=== PATIENT | female | born 1985 | race Hispanic/Latino ===

== ENCOUNTER 2020-11-21 10:35 | Day surgery (SDC) | payer MEDICAID, OTHER ==
--- NOTE | 2020-11-17 10:42 | History and Physical Report ---
History of Present Illness Date of examination: 11/15/20 History of present illness: Patient has been reassessed/reevaluated. H&P has been reviewed. No interval changes. This is a 35 years old female who presents with pelvic pain. She complains of nausea, but denies dysuria, dysmenorrhea, dyspareunia, vaginal itching, vaginal discharge, vaginal odor, painful bowel movements, constipation, diarrhea, vomiting, back pain and fever. Pain is located RLQ, LLQ, RUQ and suprapubic. She describes the pain as dull and cramping. Duration of pain is 5 min - 1 hour. Episodes are intermittent and unpredictable. Patient notes pain is worse with activity. Patient's work up has included abdominal/pelvic ulrasounds and CT scans that have gallstones and an 11cm ovarian cyst. Patient also has a displaced Mirena IUD that she desires removal. Patient's symptoms when present disrupts her normal daily activities Patient desires definitive treatment Vital Signs: Patient Profile: 35 Years Old Female Height: 62.25 inches (158.12 cm) Weight: 264 pounds BMI: 47.89 Temp: 97.2 degrees F BP sittin / 80 (left arm) Menstrual History: On BCP's at conception: no Current Method of Contraception: IUD Date of Last Pap Smear: 04/14/2020 Past History : 2 Term Births: 2 Premature Births: 0 Living Children: 1 Para: 2 Mult. Births: 0 Prev : 2 Aborta: 0 Elect. Ab: 0 Spont. 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 of genital herpes: no Partner hx. of genital herpes: no Hx of STD: none Current Allergies (reviewed today): PENICILLIN (Critical) * KEFLEX (Critical) * BACTRIM (Critical) Past Medical History: Blood Transfusions 2007 " Antibody E" Ovarian cysts Gallstones Past Surgical History: Right axillary surgery 2006 [facility] Family History Summary: No Family History of Breast Cancer No Family History of Colon Cancer No Family History of Ovarvian Cancer No Family History of DVT/PE on OCP Social History: Patient is Risk Factors: Smoked Tobacco Use: Former smoker Smokeless Tobacco Use: Never Passive smoke exposure: no Drug use: no HIV high-risk behavior: no Caffeine use: 1 drinks per day Alcohol use: yes Type: occ Exercise: yes Times per week: 7 Seatbelt use: 100 % PAP Smear History: Date of Last PAP Smear: 04/14/2020 Review of Systems General Complains of fatigue. Denies fever, chills, sweats, anorexia, weakness, malaise, weight loss and sleep disorder. Complains of pelvic pain. Denies vaginal discharge, incontinence, dysuria, hematuria, urinary frequency, amenorrhea, menorrhagia, abnormal vaginal bleeding, genital sores, decreased libido, painful periods, painful sex, urinary urgency, hot flashes, vaginal dryness, vaginal itching and vaginal odor. CV Denies chest pains, palpitations, syncope, dyspnea on exertion, orthopnea, PND and peripheral edema. Resp Denies cough, dyspnea at rest, excessive sputum, hemoptysis, wheezing and pleurisy. GI Complains of nausea, abdominal pain and gas/bloating. Denies vomiting, diarrhea, constipation, change in bowel habits, melena, hematochezia, jaundice, indigestion/heartburn, dysphagia and odynophagia. Breast Denies left breast lump, right breast lump, nipple discharge, bloody discharge from nipple, breast pain, abnormal mammogram and breast enlargement. Psych Complains of anxiety. Denies depression, irritability and mood swings. Past History Past Medical History: other (SEE HPI FOR DETAILS) Past Surgical History: Other (SEE HPI FOR DETAILS) Social history: full code, other (SEE HPI FOR DETAILS) Family history: other (SEE HPI FOR DETAILS) Medications and Allergies Allergies Allergy/AdvReac Type Severity Reaction Status Date / Time Penicillins Allergy Hives Verified 11/15/20 16:30 sulfamethoxazole Allergy Tongue Verified 11/15/20 16:30 [From Bactrim] becomes sore trimethoprim [From Bactrim] Allergy Tongue Verified 11/15/20 16:30 becomes sore cephalexin [From Keflex] AdvReac Thrush, Verified 11/15/20 16:30 infection Home Medications Medication Instructions Recorded Confirmed Last Taken Type No Known Home Medications [No 11/15/20 11/21/20 Unknown History Reported Home Medications] Active Meds: Mirena Review of Systems Constitutional: other (SEE HPI FOR DETAILS) Exam - Physical Exam Narrative exam: HEENT: normocephalic, no lesions or deformities Skin no ulcers, xanthomas Chest: respiratory effort normal, clear to auscultation CV: regular, normal S1-S2, no murmur, no rub, no gallop Abdomen: Tender RUQ & RLQ obese normal bowel sounds, soft, no HSM Well healed pfannenstiel scar Neuro: no gross anomalities Extremities: normal alignment, no joint enlargement, crepitus, masses or tenderness; normal tone and strength 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 No evidence of cystocele or rectocele. Cervix: normal appearance, no lesions, no discharge IUD string not seen Uterus: unable to palpate due to patient's guarding Adnexae: unable to palpate due to patient's guarding Rectovaginal: exam defered Results - Labs CBC & Chem 7: 11/18/20 09:45 Assessment and Plan - Patient Problems (1) Ovarian cyst Current Visit: No Status: Acute Qualifiers: Laterality: unspecified laterality Qualified Code(s): N83.209 - Unspecified ovarian cyst, unspecified side Plan to address problem: Discussed CT and ultrasound findings. Diagnosis explained to patient. Patient's symptoms when present disrupts her normal daily activities Patient desires definitive treatment. Medical and surgical treatment options discussed Patient desires laparoscopy. Discuss the risks of the surgery including infection, bleeding possibly heavy enough to require a blood transfusion, possible damage to adjacent organs. discuss of possibility of laparotomy needed.Discussed plan is for ovarian cystectomy but oophorectomy may possibly be required. Questions answered patient agreed to proceed (2) Pelvic pain Current Visit: No Status: Acute Plan to address problem: Probably secondary to # 1 (3) Displacement of intrauterine contraceptive device Current Visit: No Status: Acute Qualifiers: Encounter type: subsequent encounter Qualified Code(s): T83.32XD - Displacement of intrauterine contraceptive device, subsequent encounter Plan to address problem: Patient desires removal. IUD string not seen Indications for and description of the hysteroscopy given. .Discussed risk of surgery including infection, bleeding and risk of perforating her uterus. Questions answered. Patient understands and desires to proceed (4) Cholelithiasis Current Visit: No Status: Chronic Plan to address problem: Diagnosis explained to patient and laparoscopy will not address this condition. Questions answered. (5) Abdominal pain Current Visit: No Status: Acute Qualifiers: Abdominal location: lower abdomen, unspecified Qualified Code(s): R10.30 - Lower abdominal pain, unspecified Plan to address problem: Probably secondary to # 4 (6) Nausea Current Visit: No Status: Acute Plan to address problem: Probably secondary to # 4 (7) BMI 50.0-59.9, adult Current Visit: No Status: Chronic Plan to address problem: Discussed that the presents of this condition may increases the difficulty of performing the planned procedure
[2020-11-18 09:57] LABS: Hematocrit 37.9 % (30.3-42.9); Hemoglobin 13.3 gm/dl (10.1-14.3); Mean Corpuscular HGB Conc 35 % (30-34); Mean Corpuscular Volume 82 fl (79-97); Platelet Count 303 K/mm3 (140-440); Red Blood Count 4.63 M/mm3 (3.65-5.03); Red Cell Distribution Width 13.6 % (13.2-15.2)
[~2020-11-21 10:35] MED LIST: ACETAMINOPHEN 500 MG TAB PO SCH; GABAPENTIN 300 MG CAP PO NR; LACTATED RINGERS 1,000 ML IV SCH; MIDAZOLAM 2 MG/2 ML INJ IV NR; SCOPOLAMINE TRANSDERMAL PATCH 72 HR TD NR
[2020-11-21] MEDS ORDERED: BACTERIOSTATIC SODIUM CHLORIDE 0.9% 30 ML VIAL INFILTRATI ONE (10:53)
[2020-11-21] MEDS ORDERED: HYDROmorphone 1 MG/1 ML INJ IV PRN (11:44)
[2020-11-21] MEDS ORDERED: ONDANSETRON 4 MG/2 ML INJ IV PRN (11:44)
--- NOTE | 2020-11-21 11:44 | Anesthesia Consultation ---
Anesthesia Consult and Med Hx Date of service: 11/21/20 - Airway Anesthetic Teeth Evaluation: Good ROM Head & Neck: Adequate Mental/Hyoid Distance: Adequate Mallampati Class: Class I Intubation Access Assessment: Good - Pre-Operative Health Status ASA Pre-Surgery Classification: ASA3 Proposed Anesthetic Plan: General - Pulmonary Hx Smoking: Yes (quit smoking 3 yrs ago; currently vapes) Hx Asthma: Yes (no inhaler use in >10yrs) Hx Respiratory Symptoms: No - Cardiovascular System Hx Hypertension: No - Central Nervous System CVA: No - Endocrine Hx Renal Disease: No Hx Liver Disease: No Hx Insulin Dependent Diabetes: No Hx Non-Insulin Dependent Diabetes: No Hx Thyroid Disease: No - Hematic Hx Anemia: No Hx Sickle Cell Disease: No - Other Systems Hx Alcohol Use: Yes (Occas) Hx Obesity: Yes (BMI 49) - Additional Comments Anesthesia Medical History Comments: No hx anesthetic complications.
--- NOTE | 2020-11-21 11:44 | Anesthesia Day of Surgery ---
Anesthesia Day of Surgery - Day of Surgery Patient Examined: Yes Patient H&P Reviewed: Yes Patient is NPO: Yes
[2020-11-21] MEDS ORDERED: LIDOCAINE MPF (2%) 20 MG/1 ML VIAL 5 ML ONE (13:14)
[2020-11-21] MEDS ORDERED: dexAMETHasone 20 MG/5 ML VIAL ONE (13:14)
[2020-11-21] MEDS ORDERED: GLYCOPYRROLATE 0.4 MG/2 ML INJ ONE ×2 (13:14)
[2020-11-21] MEDS ORDERED: ONDANSETRON 4 MG/2 ML INJ ONE ×2 (13:14)
[2020-11-21] MEDS ORDERED: PHENYLEPHRINE/NS 1,000 MCG/10 ML SYRINGE (OR USE) IV ONE (13:14)
[2020-11-21] MEDS ORDERED: NEOSTIGMINE 10MG/10 ML INJ MDV ONE (13:14)
[2020-11-21] MEDS ORDERED: fentaNYL 100 MCG/2 ML INJ ONE (13:15)
[2020-11-21] MEDS ORDERED: propofoL 200 MG/20 ML VIAL IV ONE (13:15)
[2020-11-21] MEDS ORDERED: BUPIVACAINE/PF (0.5%) 5 MG/1 ML 10 ML VIAL INFILTRATI ONE ×2 (13:20→14:03)
[2020-11-21] MEDS ORDERED: SODIUM CHLORIDE 0.9% IRRIG SOLN 2000 ML IR ONE (14:03)
[2020-11-21] MEDS ORDERED: HYDROmorphone 1 MG/1 ML INJ ONE ×2 (14:28→15:38)
--- NOTE | 2020-11-21 16:00 | Operative Report ---
Operative Report Operative Report: Date of procedure: November 21, 2020 Pre-operative diagnosis: Patient with pelvic pain large ovarian cyst and di splaced IUD Post-operative diagnosis: Same Procedure name(s): Operative laparoscopy with drainage of left ovarian cyst and biopsy of left ovarian cyst wall and operative removal of Mirena IUD Surgeon: Isiah Mendez MD Business Process Manager: AMOS Anesthesia: General EBL: Minimal Complications: None Findings: Patient with Mirena IUD with some cord string. Patient with adhesions of uterus anterior abdominal wall thick omentum adhesions in the midline with a 10 to 12 cm left ovarian cyst normal-appearing ovaries and normal-appearing fallopian tubes bilaterally Specimen(s): Left ovarian cyst wall and Mirena IUD Procedure: Patient was brought to operating room. Where general anesthesia was induced on difficulty. She was placed in the dorsal lithotomy position. Prepped and draped in usual sterile manner. Urinary bladder was emptied with a red rubber catheter. Speculum was placed in the vagina. Tenaculum was placed at 12:00. The cervix was dilated progressively to operative hysteroscope could be placed without any difficulty. The hysteroscope was placed through the cervical os without any complications with the findings noted above. The IUD and the string was located. The string was grasped with a hysteroscopic graspers and pulled through the cervical os intact. Speculum was replaced into her vagina and HUMI uterine manipulator was placed for uterine manipulation without difficulty. Attention was then switched to the patient's abdomen. An infra-umbilical incision was made with a scalpel. This incision was spread with a hemostat. A 5 mm trocar was placed in this incision while lifting high the abdominal wall. Intra-abdominal presence was verified directly with the laparoscope. The patient was then insufflated to approximately 3 L of CO2 gas. The 5 mm trocar was replaced with a 10 mm trocar due to leaking around the trocar under direct visualization with no evidence of internal organ damage. The patient's findings as noted above. An accessory punctures were made in the right and left lower quadrant and 5 mm trochars were placed under direct visualization with no evidence of internal organ damage. The ovarian cyst was then punctured with the needle and drained of clear fluid. The incision was then increased in the cyst and the cyst was drained with this Nechat suction device. After the cyst was drained portion of the cyst wall was then excised with the laparoscopic scissors and removed through the separate puncture. The pelvis was then copiously irrigated and found to be hemostatic. At this time all instruments were removed. The patient was de-insufflated. The skin incisions were closed the 10 mm site was closed in layers first with a 2-0 Vicryl and all incisions were closed subcuticularly with 4-0 Vicryl. Marcaine was injected into the surgical incisions, for postoperative pain relief. The patient tolerated procedure well. She was awakened in the operating room and accompanied to the recovery room i in good condition
[2020-11-21] MEDS ORDERED: oxyCODONE /ACETAMINOPHEN 5-325MG TAB ONE (16:03)
--- NOTE | 2020-11-21 16:03 | Short Stay Summary ---
Short Stay Documentation Date of service: 11/21/20 - History Past Medical History: other (SEE HPI FOR DETAILS) Past Surgical History: Other (SEE HPI FOR DETAILS) Social history: full code, other (SEE HPI FOR DETAILS) - Allergies and Medications Current Medications: Allergies Penicillins Allergy (Verified 11/15/20 16:30) Hives sulfamethoxazole [From Bactrim] Allergy (Verified 11/15/20 16:30) Tongue becomes sore trimethoprim [From Bactrim] Allergy (Verified 11/15/20 16:30) Tongue becomes sore cephalexin [From Keflex] Adverse Reaction (Verified 11/15/20 16:30) Thrush, infection Home Medications Medication Instructions Recorded Confirmed Last Taken Type DOXYCYCLINE Hyclate [Vibramycin 100 mg PO Q12HR #14 capsule 11/21/20 Unknown Rx CAP] Ibuprofen [Motrin 800 MG tab] 800 mg PO Q6H PRN #30 tablet 11/21/20 Unknown Rx oxyCODONE /ACETAMINOPHEN [Percocet 1 - 2 tab PO Q6HR PRN #14 tablet 11/21/20 Unknown Rx 5/325 mg] Active Medications Acetaminophen (Acetaminophen 500 Mg Tab) 1,000 mg PO PREOP BENSON Stop: 11/21/20 23:59 Last Admin: 11/21/20 10:55 Dose: 1,000 mg Documented by: Gabapentin (Gabapentin 300 Mg Cap) 300 mg PO PREOP NR Stop: 11/21/20 23:59 Last Admin: 11/21/20 10:55 Dose: 300 mg Documented by: Hydromorphone HCl (Hydromorphone 1 Mg/1 Ml Inj) 0.5 mg IV Q10MIN PRN PRN Reason: Pain , Severe (7-10) Stop: 11/21/20 23:00 Lactated Ringer's (Lactated Ringers) 1,000 mls @ 100 mls/hr IV DIRECT BENSON Stop: 11/21/20 23:59 Last Admin: 11/21/20 11:15 Dose: 100 mls/hr Documented by: Midazolam HCl (Midazolam 2 Mg/2 Ml Inj) 2 mg IV PREOP NR Stop: 11/21/20 23:59 Last Admin: 11/21/20 12:15 Dose: 2 mg Documented by: Ondansetron HCl (Ondansetron 4 Mg/2 Ml Inj) 4 mg IV ONCE PRN PRN Reason: Nausea And Vomiting Stop: 11/21/20 20:00 Scopolamine (Scopolamine Transdermal Patch 72 Hr) 1 each TD PREOP NR Stop: 11/24/20 05:59 Last Admin: 11/21/20 10:55 Dose: 1 each Documented by: - Physical exam General appearance: mild distress Integumentary: no rash HEENT: Atraumatic Lungs: Normal air movement Breasts: deferred Heart: Regular rate Gastrointestinal: tenderness (Appropriate postop), distended (Appropriate post laparoscopy) Female Genitourinary: normal Rectal Exam: deferred Extremities: no ischemia Neurological: Normal speech - Brief post op/procedure progress note Date of procedure: 11/21/20 (See dictated operative note for details) Condition: stable - Hospital course Hospital course: Patient was admitted underwent the above him procedure without any complications. Patient will be discharged with follow-up in office in 1-2 weeks for postop check. - Disposition Condition at discharge: Good Disposition: [id number] TO HOME OR SELFCARE - Discharge Diagnoses (1) Ovarian cyst Status: Resolved Qualifiers: Laterality: unspecified laterality Qualified Code(s): N83.209 - Unspecified ovarian cyst, unspecified side (2) Pelvic pain Status: Acute (3) Displacement of intrauterine contraceptive device Status: Resolved Qualifiers: Encounter type: subsequent encounter Qualified Code(s): T83.32XD - Displacement of intrauterine contraceptive device, subsequent encounter (4) Cholelithiasis Status: Chronic (5) Abdominal pain Status: Acute Qualifiers: Abdominal location: lower abdomen, unspecified Qualified Code(s): R10.30 - Lower abdominal pain, unspecified (6) Nausea Status: Acute (7) BMI 50.0-59.9, adult Status: Chronic Short Stay Discharge Plan Activity: advance as tolerated Diet: regular Wound: open to air Additional Instructions: Patient to call office for any fever, chills, nausea, vomiting or pain not controlled by pain medication. Follow up with: ZAKIA AVENDANO DO [Primary Care Provider] - 7 Days Prescriptions: Ibuprofen [Motrin 800 MG tab] 800 mg PO Q6H PRN #30 tablet PRN Reason: Pain oxyCODONE /ACETAMINOPHEN [Percocet 5/325 mg] 1 - 2 tab PO Q6HR PRN #14 tablet PRN Reason: Pain DOXYCYCLINE Hyclate [Vibramycin CAP] 100 mg PO Q12HR #14 capsule
[2020-11-21] MEDS ORDERED: oxyCODONE /ACETAMINOPHEN 5-325MG TAB PO PRN (16:21)
--- NOTE | 2020-11-21 17:35 | Post Anesthesia Evaluation ---
- Post Anesthesia Evaluation Patient Participated: Yes Airway Patent: Yes Stable Respiratory Function: Yes Nausea/Vomiting: No Temp > 96.8F: Yes Pain Manageable: Yes Adequeate Hydration: Yes Anesthesia Complications: No
[2020-11-21 19:32] VITALS: BP 129/66
== END 2020-11-21 10:36 | disposition home or self-care (01) ==
LOC: OR 10:35
PROVIDERS: ATTEND Obstetrics & Gynecology
DX: R10.2 Pelvic and perineal pain (principal); N83.202 Unspecified ovarian cyst, left side; Z30.432 Encounter for removal of intrauterine contraceptive device; Z20.822 Contact with and (suspected) exposure to COVID-19; M19.90 Unspecified osteoarthritis, unspecified site; T83.32XA Displacement of intrauterine contraceptive device, initial encounter; G43.909 Migraine, unspecified, not intractable, without status migrainosus; J45.909 Unspecified asthma, uncomplicated; E66.9 Obesity, unspecified; Z79.899 Other long term (current) drug therapy; Z88.0 Allergy status to penicillin; Z88.8 Allergy status to other drugs, medicaments and biological substances; Z98.891 History of uterine scar from previous surgery; Z87.440 Personal history of urinary (tract) infections; Z72.89 Other problems related to lifestyle; Z68.42 Body mass index [BMI] 45.0-49.9, adult; Z98.890 Other specified postprocedural states; Z87.891 Personal history of nicotine dependence; Y92.89 Other specified places as the place of occurrence of the external cause; Y83.8 Other surgical procedures as the cause of abnormal reaction of the patient, or of later complication, without mention of misadventure at the time of the procedure
CPT/HCPCS: 36415; 58562; 58670; 84703; 85027; 88112; 88300; 88305; A4217; J1100; J1170; J2250; J2370; J2405; J2704; J2710; J3010; J7120; U0003; 88302

== ENCOUNTER 2020-11-25 17:38 | Emergency (ER) | payer OTHER ==
--- NOTE | 2020-11-25 18:08 | Event Note ---
ED Screening Note ED Screening Note: procedure on 11/21/[address] Mendez, AGRICULTURAL ADVISER had a IUD removal and left ovarian cyst removal last night began having vaginal bleeding states having pelvic pain and lower back pain and chills states she is changing her pad every 2 hours no fever no n/v/d no drainage from incision sites no redness around incision sites PMHx ovarian cyst allergy:penicillin, bactrim, keflex This initial assessment/diagnostic orders/clinical plan/treatment(s) is/are subject to change based on patients health status, clinical progression and re- assessment by fellow clinical providers in the ED. Further treatment and workup at subsequent clinical providers discretion. Patient/guardian urged not to elope from the ED as their condition may be serious if not clinically assessed and managed. Initial orders include: labs, UA
[2020-11-25 18:34] LABS: Basophils # (Auto) 0.1 K/mm3 (0.0-0.1); Basophils % (Auto) 0.5 % (0.0-1.8); Eosinophils # (Auto) 0.4 K/mm3 (0.0-0.4); Eosinophils % (Auto) 2.3 % (0.0-4.3); Hematocrit 40.7 % (30.3-42.9); Hemoglobin 13.8 gm/dl (10.1-14.3); Lymphocytes # (Auto) 3.7 K/mm3 (1.2-5.4); Lymphocytes % (Auto) 21.3 % (13.4-35.0); Mean Corpuscular HGB Conc 34 % (30-34); Mean Corpuscular Volume 82 fl (79-97); Monocytes # (Auto) 0.8 K/mm3 (0.0-0.8); Monocytes % (Auto) 4.9 % (0.0-7.3); Platelet Count 360 K/mm3 (140-440); Red Blood Count 4.95 M/mm3 (3.65-5.03); Red Cell Distribution Width 13.7 % (13.2-15.2)
[2020-11-25 18:49] LABS: Bilirubin,Urine NEG (Negative); Blood,Urine LG (Negative); Color,Urine Red (Yellow); RBC,Urine > 182.0 /HPF (0.0-6.0); Urobilinogen,Urine < 2.0 mg/dL (<2.0)
[2020-11-25 18:57] LABS: Alanine Aminotransferase 25 units/L (7-56); Blood Urea Nitrogen 10 mg/dL (7-17); Hemolysis Index 8
[2020-11-25 18:58] LABS: BUN/Creatinine Ratio 17
[2020-11-25] MEDS ORDERED: MORPHINE 4 MG/1 ML INJ IV ONE (19:06)
[2020-11-25] MEDS ORDERED: ONDANSETRON 4 MG/2 ML INJ IV ONE (19:06)
[2020-11-25] MEDS ORDERED: SODIUM CHLORIDE 0.9% 1000 ML 1,000 ML IV ONE (19:06)
--- NOTE | 2020-11-25 19:24 | Emergency Department Report ---
ED Female HPI - General Chief complaint: Vaginal Bleeding Stated complaint: COMPLICATIONS FROM PROCEDURE ON 11/21/20 Time Seen by Provider: 11/25/20 18:07 Source: patient Mode of arrival: Ambulatory Limitations: No Limitations - History of Present Illness Initial comments: Patient is a A0 35-year-old white female with a history of morbid obesity, migraine headaches, chronic osteoarthritis and asthma and who is 5 days s/p laparoscopic left ovarian cyst surgery and IUD removal and who presents to the ED with acute onset persistent severe pelvic pain that radiates to the left lower quadrant area with heavy vaginal bleeding for the last 4 days worse in the last 2 days. Patient states that she has been taking the previously prescribed medications including Percocet, ibuprofen and doxycycline but states that the symptoms have worsened especially in the last 12 hours. Patient also complains of nausea, lack of appetite and lightheadedness. Patient denies fever, chills, vomiting, diarrhea, dizziness, syncope, chest pain, shortness of breath, dysuria, urinary frequency and urgency, vaginal discharge, low back pain, headache or change in vision. MD Complaint: vaginal bleeding, pelvic pain -: Sudden, days(s) (4) Location: suprapubic, other (vaginal) Radiation: non-radiating Severity: severe Severity scale (0 -10): 8 Quality: sharp, aching Consistency: constant Improves with: none Worsens with: none Are you Now?: No (s/p Laparoscopic left ovarian cyst surgery) Associated Symptoms: denies other symptoms, vaginal bleeding, abdominal pain. denies: vaginal discharge, nausea/vomiting, fever/chills, headaches, loss of appetite, dysuria, hematuria, rash, seizure, shortness of breath, syncope - Related Data : 2 Para: 2 A: 0 Previous Rx's Medication Instructions Recorded Last Taken Type DOXYCYCLINE Hyclate [Vibramycin 100 mg PO Q12HR #14 capsule 11/21/20 Unknown Rx CAP] Ibuprofen [Motrin 800 MG tab] 800 mg PO Q6H PRN #30 tablet 11/21/20 Unknown Rx oxyCODONE /ACETAMINOPHEN [Percocet 1 - 2 tab PO Q6HR PRN #14 tablet 11/21/20 Unknown Rx 5/325 mg] Ondansetron [Zofran Odt] 4 mg PO Q6HR PRN #15 tab.rapdis 11/25/20 Unknown Rx Allergies Allergy/AdvReac Type Severity Reaction Status Date / Time Penicillins Allergy Hives Verified 11/15/20 16:30 sulfamethoxazole Allergy Tongue Verified 11/15/20 16:30 [From Bactrim] becomes sore trimethoprim [From Bactrim] Allergy Tongue Verified 11/15/20 16:30 becomes sore cephalexin [From Keflex] AdvReac Thrush, Verified 11/15/20 16:30 infection ED Review of Systems ROS: Stated complaint: COMPLICATIONS FROM PROCEDURE ON 11/21/20 Other details as noted in HPI Constitutional: denies: chills, fever Eyes: denies: eye pain, eye discharge, vision change ENT: denies: ear pain, throat pain Respiratory: denies: cough, shortness of breath, wheezing Cardiovascular: denies: chest pain, palpitations Endocrine: no symptoms reported Gastrointestinal: abdominal pain (suprapubic test), nausea. denies: vomiting, diarrhea, constipation, hematemesis, melena, hematochezia Genitourinary: abnormal menses (heavy vaginal bleeding). denies: urgency, dysuria, discharge Musculoskeletal: denies: back pain, joint swelling, arthralgia Skin: denies: rash, lesions Neurological: denies: headache, weakness, paresthesias Psychiatric: denies: anxiety, depression, auditory hallucinations, visual hallucinations Hematological/Lymphatic: denies: easy bleeding, easy bruising ED Past Medical Hx - Past Medical History Previous Medical History?: Yes Hx Hypertension: No Hx Congestive Heart Failure: No Hx Diabetes: No Hx Deep Vein Thrombosis: No Hx Liver Disease: No Hx Renal Disease: No Hx Sickle Cell Disease: No Hx Arthritis: Yes (Hands) Hx Headaches / Migraines: Yes (Migraines) Hx Asthma: Yes (no inhaler use in >10yrs) Hx HIV: No Additional medical history: morbid obesity - Surgical History Past Surgical History?: Yes Hx Breast Surgery: Yes (Milk duct removed from right axilla) - Social History Smoking Status: Former Smoker Substance Use Type: None - Medications Home Medications: Home Medications Medication Instructions Recorded Confirmed Last Taken Type DOXYCYCLINE Hyclate [Vibramycin 100 mg PO Q12HR #14 capsule 11/21/20 Unknown Rx CAP] Ibuprofen [Motrin 800 MG tab] 800 mg PO Q6H PRN #30 tablet 11/21/20 Unknown Rx oxyCODONE /ACETAMINOPHEN [Percocet 1 - 2 tab PO Q6HR PRN #14 tablet 11/21/20 Unknown Rx 5/325 mg] Ondansetron [Zofran Odt] 4 mg PO Q6HR PRN #15 tab.rapdis 11/25/20 Unknown Rx ED Physical Exam - General Limitations: No Limitations General appearance: alert, in no apparent distress - Head Head exam: Present: atraumatic, normocephalic, normal inspection - Eye Eye exam: Present: normal appearance, PERRL, EOMI Pupils: Present: normal accommodation - ENT ENT exam: Present: normal exam, normal orophraynx, mucous membranes moist, TM's normal bilaterally, normal external ear exam - Neck Neck exam: Present: normal inspection, full ROM. Absent: tenderness - Respiratory Respiratory exam: Present: normal lung sounds bilaterally. Absent: respiratory distress, wheezes, stridor, chest wall tenderness, accessory muscle use, decreased breath sounds - Cardiovascular Cardiovascular Exam: Present: normal rhythm, tachycardia, normal heart sounds. Absent: systolic murmur, diastolic murmur, rubs, gallop - GI/Abdominal GI/Abdominal exam: Present: soft, tenderness (Palpable suprapubic tenderness, worse in the LLQ area), normal bowel sounds. Absent: guarding, rebound, hyperactive bowel sounds, hypoactive bowel sounds, organomegaly - Extremities Exam Extremities exam: Present: normal inspection, full ROM, normal capillary refill - Back Exam Back exam: Present: normal inspection, full ROM. Absent: tenderness, muscle spasm, paraspinal tenderness, vertebral tenderness - Neurological Exam Neurological exam: Present: alert, oriented X3, CN II-XII intact, normal gait, reflexes normal - Psychiatric Psychiatric exam: Present: normal affect, normal mood - Skin Skin exam: Present: warm, dry, intact, normal color. Absent: rash ED Course Vital Signs 11/25/20 11/25/20 11/25/20 18:06 19:28 19:58 Temperature 99.3 F Pulse Rate 102 H Respiratory 20 18 18 Rate Blood Pressure 143/80 O2 Sat by Pulse 97 Oximetry 11/25/20 20:15 Temperature Pulse Rate 84 Respiratory 20 Rate Blood Pressure 136/79 O2 Sat by Pulse 99 Oximetry - Reevaluation(s) Reevaluation #1: 11/25/20 21:46 On reevaluation, patient's pain is well controlled medications. Patient will discharge home and advised to continue taking the previously prescribed pain medications and antibiotics, doxycycline 100 mg every 12 hours, and to follow-up with Dr. Mendez her LEGAL ADMINISTRATIVE ASSISTANT physician on Saturday, November 28, 2020 at 0945 hrs, per Dr. Perkins the LEGAL ADMINISTRATIVE ASSISTANT physician national insurance officer for Dr. Mendez. - Consultations Consultation #1: 11/25/20 21:44 I paged and discussed the patient's case with Dr. Perknis, the LEGAL ADMINISTRATIVE ASSISTANT physician national insurance officer for Dr. Mendez the patient's LEGAL ADMINISTRATIVE ASSISTANT physician. Dr. Perkins also agreed with the disposition plan to discharge the patient home and have the patient follow-up with Dr. Mendez on Saturday November 28, 2020 at 0945 hrs. ED Medical Decision Making - Lab Data Result diagrams: 11/25/20 18:24 11/25/20 18:24 - Radiology Data Radiology results: report reviewed, [place] [address] Cat Scan Report Signed Patient: AURORA KEVIN MR#: [id number] : 1985 Acct:[id number] Age/Sex: 35 / F ADM Date: 11/25/20 Loc: ED Attending Dr: Ordering Physician: BRIAN HICKS Date of Service: 11/25/20 Procedure(s): CT abdomen pelvis w con Accession Number(s): [id number] cc: BRIAN HICKS CT abdomen pelvis w con INDICATION / CLINICAL INFORMATION: abd pain, vaginal bleeding, post op ovarian cyst. TECHNIQUE: Axial CT imaging of abdomen and pelvis was obtained with IV contrast. Coronal and sagittal reformatted imaging obtained and reviewed. All CT scans at this location are performed using CT dose reduction for ALARA by means of automated exposure control. COMPARISON: None available. FINDINGS: CT abdomen with contrast demonstrates normal appearance of the liver, spleen, pancreas, kidneys, and adrenal glands. The gallbladder is completely full of large gallstones. No abnormal biliary dilatation. Abdominal aorta is unremarkable. CT pelvis with contrast does not demonstrate any mass, free fluid, or adenopat hy. A normal appendix is visualized in the right lower quadrant. No obvious abnormality related to the uterus. There are a few small cysts associated with the left ovary, largest cyst measuring 17 mm. No free fluid. GI tract is grossly unremarkable. Visualized lung bases are clear. No significant acute osseous abnormalities noted. IMPRESSION: 1. Cholelithiasis without CT evidence of acute cholecystitis. Please note that the gallbladder is completely full of moderate to large sized gallstones. 2. No additional significant finding identified within the abdomen or pelvis. Signer Name: Anne Chung MD Signed: 11/25/2020 9:04 PM Workstation Name: [id number] Transcribed By: Dictated By: Anne Chung MD Electronically Authenticated By: Anne Chung MD Signed Date/Time: 11/25/202103 DD/ 58 TD/TT: Print Cancel - Medical Decision Making This is a A0 35-year-old white female with a history of morbid obesity, migraine headaches, chronic osteoarthritis and asthma and who is 5 days s/p laparoscopic left ovarian cyst surgery and IUD removal and who presents to the ED with acute onset persistent severe pelvic pain that radiates to the left lower quadrant area with heavy vaginal bleeding for the last 4 days worse in the last 2 days. Patient states that she has been taking the previously prescribed medications including Percocet, ibuprofen and doxycycline but states that the symptoms have worsened especially in the last 12 hours. Patient also complains of nausea, lack of appetite and lightheadedness. In the ED, patient is alert and oriented x3 and is not in distress but appears to be in pain and is tachycardic but afebrile in triage. Patient was treated for pain in the ED, also given antiemetics and normal saline 1 L IV bolus x1. Lab test results were reviewed and showed acute leukocytosis of 17,400 and urinalysis showed significant blood in urine with increased WBCs. The rest of the lab test results are nonactionable. Abdomen pelvis CT scan with contrast showed cholelithiasis without CT evidence of acute cholecystitis. Please note that the gallbladder is completely full of moderate to large sized gallstones. It also showed no additional significant finding identified within the abdomen or pelvis. On reevaluation, patient's pain is well controlled medications. I therefore paged and discussed the patient's case with the LEGAL ADMINISTRATIVE ASSISTANT physician Dr. Mariel ac who was on-call for Dr. Mendez. Dr. Perkins advised that the patient may be discharged home and advised to continue taking the previously prescribed medications for pain and also antibiotics, and have the patient follow-up with the LEGAL ADMINISTRATIVE ASSISTANT physician Dr. Mendez on Saturday, November 28, 2020 at 0945 hrs. for further reevaluation. Patient was also given antibiotic Levaquin 500 mg p.o. x1 in the ED for a suspected infection. Patient was discharged home and advised to continue taking the previously prescribed medications, and to follow up with her [facility] Land[employer] Operator Physician Dr. Mendez on Saturday, November 28, 2020 at 0945 hrs. at the [facility]'s [place] office. Patient was also advised to return to the ED immediately if symptoms get worse. - Differential Diagnosis TOA; UTI; kidney stone; ovarian cyst; colitis; pelvic abscess; postop infec Critical care attestation.: If time is entered above; I have spent that time in minutes in the direct care of this critically ill patient, excluding procedure time. ED Disposition Clinical Impression: Postoperative abdominal pain, Cholelithiasis without cholecystitis Disposition: - TO HOME OR SELFCARE Is pt being admited?: No Does the pt Need Aspirin: No Condition: Stable Instructions: Cholelithiasis, [id number], Abdominal Pain, Adult, [id number] Additional Instructions: All lab test results were reviewed, the abdomen pelvis CT scan with contrast report was also reviewed and it showed no abnormalities in the pelvis area. Incidentally it showed cholelithiasis without cholecystitis. Therefore continue taking the previously prescribed pain medications and antibiotics and follow-up with the LEGAL ADMINISTRATIVE ASSISTANT physician Dr. Mendez on Saturday, November 28, 2020 at 0945 hrs. for further evaluation. Return to the ED immediately if your symptoms get worse. Prescriptions: Ondansetron [Zofran Odt] 4 mg PO Q6HR PRN #15 tab.rapdis PRN Reason: Nausea And Vomiting Referrals: SOPHIE MENDEZ MD [Staff Physician] - 11/28/20 9:45 am Time of Disposition: 21:49 Print Language: BULGARIAN
--- NOTE | 2020-11-25 21:08 | Cat Scan Report ---
CT abdomen pelvis w con INDICATION / CLINICAL INFORMATION: abd pain, vaginal bleeding, post op ovarian cyst. TECHNIQUE: Axial CT imaging of abdomen and pelvis was obtained with IV contrast. Coronal and sagittal reformatte d imaging obtained and reviewed. All CT scans at this location are performed using CT dose reduction for ALARA by means of automated exposure control. COMPARISON: None available. FINDINGS: CT abdomen with contrast demonstrates normal appearance of the liver, spleen, pancreas, kidneys, and adrenal glands. The gallbladder is completely full of large gallstones. No abnormal biliary dilatatio n. Abdominal aorta is unremarkable. CT pelvis with contrast does not demonstrate any mass, free fluid, or adenopathy. A normal appendix i s visualized in the right lower quadrant. No obvious abnormality related to the uterus. There are a f ew small cysts associated with the left ovary, largest cyst measuring 17 mm. No free fluid. GI tract is grossly unremarkable. Visualized lung bases are clear. No significant acute osseous abnormalities noted. IMPRESSION: 1. Cholelithiasis without CT evidence of acute cholecystitis. Please note that the gallbladder is com pletely full of moderate to large sized gallstones. 2. No additional significant finding identified within the abdomen or pelvis. Signer Name: Anne Chung MD Signed: 11/25/2020 9:04 PM Workstation Name: [id number]
[2020-11-25] MEDS ORDERED: levoFLOXacin 500 MG TAB PO ONE (21:22)
[2020-11-25 22:11] VITALS: BP 142/72
== END 2020-11-25 22:05 | disposition home or self-care (01) ==
LOC: ED 17:38
DX: G89.18 Other acute postprocedural pain (principal); R10.2 Pelvic and perineal pain; K80.20 Calculus of gallbladder without cholecystitis without obstruction; G43.909 Migraine, unspecified, not intractable, without status migrainosus; M19.91 Primary osteoarthritis, unspecified site; J45.909 Unspecified asthma, uncomplicated; Z98.890 Other specified postprocedural states; Z87.891 Personal history of nicotine dependence; Z79.1 Long term (current) use of non-steroidal anti-inflammatories (NSAID); Z79.899 Other long term (current) drug therapy; Z88.8 Allergy status to other drugs, medicaments and biological substances; Z88.0 Allergy status to penicillin
CPT/HCPCS: 36415; 74177; 80053; 81001; 83690; 84703; 85025; 87086; 96361; 96374; 96375; 99284; J2270; J2405; J7030; Q9967

== ENCOUNTER 2022-04-13 10:08 | Inpatient (IN) | payer BC, OTHER ==
[2022-04-13] MEDS ORDERED: METOCLOPRAMIDE 10 MG/2 ML INJ IV NR (10:25)
[2022-04-13] MEDS ORDERED: LACTATED RINGERS 1,000 ML IV SCH (10:30)
[2022-04-13] MEDS ORDERED: FAMOTIDINE 20 MG/2 ML INJ IV NR (11:00)
[2022-04-13] MEDS ORDERED: OXYTOCIN DRIP 30 UNITS/500 ML BAG IV SCH (11:00)
[2022-04-13] MEDS ORDERED: BICITRA ORAL LIQD 30ML PO NR (11:00)
--- NOTE | 2022-04-13 13:14 | History and Physical Report ---
History of Present Illness Date of examination: 04/13/22 Date of admission: 04/13/22 10:08 Chief complaint: IUP@37 weeks GA, present for delivery due to mild preeclampsia diagnosed March with twin gestation and IUGR on twin A. Patient is a previous delivery x2 and desires sterilization. We will proceed with delivery with bilateral salpingectomy. Past History Past Medical History: other (Cholelithiasis, endometriosis) Past Surgical History: section (x2), other (right axillary surgery) COMMODITY SPECIALIST History: abnormal PAP smear Family/Genetic History: none Social history: no significant social history - Obstetrical History Expected Date of Delivery: 05/04/22 Actual Gestation: 37 Week(s) 0 Day(s) : 3 Para: 2 Hx # Term Pregnancies: 2 Number of Living Children: 2 Medications and Allergies Allergies Allergy/AdvReac Type Severity Reaction Status Date / Time Penicillins Allergy Hives Verified 11/15/20 16:30 sulfamethoxazole Allergy Tongue Verified 11/15/20 16:30 [From Bactrim] becomes sore trimethoprim [From Bactrim] Allergy Tongue Verified 11/15/20 16:30 becomes sore cephalexin [From Keflex] AdvReac Thrush, Verified 11/15/20 16:30 infection Home Medications Medication Instructions Recorded Confirmed Last Taken Type Ibuprofen [Motrin 800 MG tab] 800 mg PO Q6H PRN #30 tablet 11/21/20 Unknown Rx oxyCODONE /ACETAMINOPHEN [Percocet 1 - 2 tab PO Q6HR PRN #14 tablet 11/21/20 12/08/20 Rx 5/325 mg] Active Meds: Active Medications Citric Acid/Sodium Citrate (Bicitra Oral Liqd 30ml) 30 ml PO ONCE NR Stop: 04/13/22 23:00 Famotidine (Famotidine 20 Mg/2 Ml Inj) 20 mg IV ONCE NR Stop: 04/13/22 23:00 Lactated Ringer's (Lactated Ringers) 1,000 mls @ 2,250 mls/hr IV PREOP BENSON Stop: 04/14/22 10:57 Oxytocin/Sodium Chloride (Pitocin/Ns 30 Unit/500ml) 30 units in 500 mls @ 0 mls/hr IV TITR BENSON; Protocol Clindamycin HCl (Cleocin 900 Mg/50 Ml) 900 mg in 50 mls @ 100 mls/hr IV PREOP NR; Protocol Stop: 04/13/22 23:00 Review of Systems All systems: negative - Vital Signs Vital signs: Vital Signs Pulse BP 100 H 139/78 04/13/22 11:52 04/13/22 11:52 Temp Pulse Resp BP Pulse Ox 98.4 F 110 H 16 139/78 97 04/13/22 12:10 04/13/22 13:04 04/13/22 12:10 04/13/22 12:10 04/13/22 13:04 - Physical Exam Breasts: Positive: deferred Lungs: Positive: Normal air movement Results All other labs normal. Assessment and Plan - Patient Problems (1) 37 weeks gestation of Current Visit: Yes Status: Acute (2) Preeclampsia Current Visit: Yes Status: Acute (3) Twin gestation in third trimester Current Visit: Yes Status: Acute (4) IUGR (intrauterine growth restriction) Current Visit: Yes Status: Acute (5) Body mass index (BMI) greater than 40 Current Visit: Yes Status: Chronic (6) Sterilization Current Visit: Yes Status: Acute Plan to address problem: Risk of regret emphasized. Permanent and irreversible condition explained to patient. Options for sterilization reviewed. Patient desires to proceed with bilateral salpingectomy to decrease her risk for ovarian cancer. Indication for boarding salpingectomy and proceeding with methods of sterilization explained. Discussed possible 1% failure rate as well. Signed consents were reviewed questions were encouraged and answered. Patient voiced understanding desires to proceed with bilateral salpingectomy for sterilization (7) Previous delivery affecting Current Visit: Yes Status: Acute Plan to address problem: Risk associated with delivery were discussed, including but not limited to, bleeding that may require blood transfusion, infection that may be life threatening, injury to adjacent organs specifically bowel or bladder that may require further surgeries, or major vascular injury. She was also informed that when she has had a delivery she may require repeat deliveries for all subsequent pregnancies. Questions were encouraged and answered, consents were reviewed and signed. Patient voiced understanding and desires to proceed with delivery.
[2022-04-13] MEDS ORDERED: GENTAMICIN/NS 120MG/100ML 120 MG/100 ML BAG IV SCH (13:29)
[2022-04-13] MEDS ORDERED: GENTAMICIN 0 MG in SODIUM CHLORIDE 0.9% 100 ML IV ONE (13:29)
[2022-04-13 13:32] LABS: Basophils # (Auto) 0.1 K/mm3 (0.0-0.1); Basophils % (Auto) 0.5 % (0.0-1.8); Eosinophils # (Auto) 0.2 K/mm3 (0.0-0.4); Eosinophils % (Auto) 1.8 % (0.0-4.3); Hematocrit 33.6 % (30.3-42.9); Hemoglobin 11.1 gm/dl (10.1-14.3); Lymphocytes # (Auto) 1.9 K/mm3 (1.2-5.4); Lymphocytes % (Auto) 17.8 % (13.4-35.0); Mean Corpuscular HGB Conc 33 % (30-34); Mean Corpuscular Volume 75 fl (79-97); Monocytes # (Auto) 0.6 K/mm3 (0.0-0.8); Platelet Count 211 K/mm3 (140-440); Red Blood Count 4.49 M/mm3 (3.65-5.03); Red Cell Distribution Width 16.8 % (13.2-15.2)
--- NOTE | 2022-04-13 16:27 | Anesthesia Consultation ---
Anesthesia Consult and Med Hx - Airway Anesthetic Teeth Evaluation: Good ROM Head & Neck: Adequate Mental/Hyoid Distance: Inadequate Mallampati Class: Class II Intubation Access Assessment: Possibly Difficult - Pulmonary Exam CTA: Yes - Cardiac Exam Cardiac Exam: RRR - Pre-Operative Health Status ASA Pre-Surgery Classification: ASA3 Proposed Anesthetic Plan: Spinal - Pulmonary Hx Smoking: Yes (quit smoking 3 yrs ago; currently vapes) Hx Asthma: No Hx Respiratory Symptoms: No COPD: No Hx Pneumonia: No - Cardiovascular System Hx Hypertension: No Hx Coronary Artery Disease: No Hx Heart Attack/AMI: No Hx Angina: No Hx Percutaneous Transluminal Coronary Angioplasty (PTCA): No Hx Cardia Arrhythmia: No Hx Pacemaker: No Hx Internal Defibrillator: No Hx Valvular Heart Disease: No Hx Heart Murmur: No Hx Peripheral Vascular Disease: No - Central Nervous System Hx Neuromuscular Disorder: No Hx Seizures: No CVA: No Hx Back Pain: No Hx Psychiatric Problems: No - Gastrointestinal Hx Ulcer: No Hx Gastroesophageal Reflux Disease: No - Endocrine Hx Renal Disease: No Hx End Stage Renal Disease: No Hx Cirrhosis: No Hx Liver Disease: No Hx Insulin Dependent Diabetes: No Hx Non-Insulin Dependent Diabetes: No Hx Thyroid Disease: No Hx Hypothyroidism: No Hx Hyperthyroidism: No - Hematic Hx Anemia: No Hx Sickle Cell Disease: No - Other Systems Hx Alcohol Use: No Hx Cancer: No Hx Obesity: Yes (BMI 62)
--- NOTE | 2022-04-13 16:28 | Anesthesia Day of Surgery ---
Anesthesia Day of Surgery - Day of Surgery Patient Examined: Yes Patient H&P Reviewed: Yes Patient is NPO: Yes
--- NOTE | 2022-04-13 19:06 | Event Note ---
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 [facility] executive director of nursing and mushroom laborer aware and working with Kendall to obtain blood. I also s/w Dr. Camarillo ([facility] executive director of nursing) who will attempt to escalate the process. Patient is aware of the concerns and agrees to stay until blood is available. Questions encouraged and answered
--- NOTE | 2022-04-14 06:37 | Event Note ---
Date: 04/14/22 Compatible blood now available. Will proceed with delivery.
--- NOTE | 2022-04-14 10:01 | Event Note ---
Date: 04/14/22 now awaiting staffing to proceed with scheduled c/s that was to be done prior to this pt on yesterday that was not done due to staffing. Will proceed with her c/s and then this pt is to follow. Both babies stable and pt shows no s/sx of severe pre E at this time. Cell saver will also be called in for this pt c/s due to her h/o PPH and antibodies present.
[2022-04-14] MEDS ORDERED: METOCLOPRAMIDE 10 MG/2 ML INJ IV ONE (12:31)
[2022-04-14] MEDS ORDERED: FAMOTIDINE 20 MG/2 ML INJ IV ONE (12:31)
[2022-04-14] MEDS ORDERED: BICITRA ORAL LIQD 30ML PO ONE (12:31)
[2022-04-14] MEDS ORDERED: LACTATED RINGERS 1,000 ML IV SCH (12:45)
[2022-04-14] MEDS ORDERED: PHENYLEPHRINE/NS 1,000 MCG/10 ML SYRINGE (OR USE) IV ONE (14:20)
[2022-04-14] MEDS ORDERED: ePHEDrine SULFATE 50 MG/1 ML INJ ONE (14:21)
[2022-04-14] MEDS ORDERED: BUPIVACAINE/PF (0.25%) 2.5 MG/ML 30 ML VIAL INFILTRATI ONE (14:23)
[2022-04-14] MEDS ORDERED: fentaNYL 100 MCG/2 ML INJ ONE (14:23)
[2022-04-14] MEDS ORDERED: dexAMETHasone 20 MG/5 ML VIAL ONE (14:23)
[2022-04-14] MEDS ORDERED: ONDANSETRON 4 MG/2 ML INJ ONE (14:23)
[2022-04-14] MEDS ORDERED: KETOROLAC 30 MG/1 ML INJ ONE (14:27)
[2022-04-14] MEDS ORDERED: SODIUM CHLORIDE 0.9% IRR 1,500 ML BOTTLE IR ONE (15:45)
[2022-04-14] MEDS ORDERED: ANTICOAGULANT SOD CITRATE SOLUTION MC ONE (15:52)
[2022-04-14] MEDS ORDERED: CARBOPROST TROMETHAMINE 250 MCG/1 ML INJ IM ONE (16:06)
[2022-04-14] MEDS ORDERED: METHYLERGONOVINE MALEATE 0.2 MG/ML VIAL IM ONE (16:06)
[2022-04-14] MEDS ORDERED: miSOPROStol 200 MCG TAB ONE (16:06)
[2022-04-14] MEDS ORDERED: LACTATED RINGERS 1,000 ML ONE (17:17)
--- NOTE | 2022-04-14 17:58 | Anesthesia Consultation ---
Anesthesia Consult and Med Hx - Airway Anesthetic Teeth Evaluation: Good ROM Head & Neck: Adequate Mental/Hyoid Distance: Adequate Mallampati Class: Class I Intubation Access Assessment: Good - Pulmonary Exam CTA: Yes - Cardiac Exam Cardiac Exam: RRR - Pre-Operative Health Status ASA Pre-Surgery Classification: ASA2 Proposed Anesthetic Plan: Spinal Nerve Block: tap - Pulmonary Hx Smoking: Yes (quit smoking 3 yrs ago; currently vapes) Hx Asthma: No Hx Respiratory Symptoms: No COPD: No Hx Pneumonia: No - Cardiovascular System Hx Hypertension: No Hx Coronary Artery Disease: No Hx Heart Attack/AMI: No Hx Angina: No Hx Percutaneous Transluminal Coronary Angioplasty (PTCA): No Hx Cardia Arrhythmia: No Hx Pacemaker: No Hx Internal Defibrillator: No Hx Valvular Heart Disease: No Hx Heart Murmur: No Hx Peripheral Vascular Disease: No - Central Nervous System Hx Neuromuscular Disorder: No Hx Seizures: No CVA: No Hx Back Pain: No Hx Psychiatric Problems: No - Gastrointestinal Hx Ulcer: No Hx Gastroesophageal Reflux Disease: No - Endocrine Hx Renal Disease: No Hx End Stage Renal Disease: No Hx Cirrhosis: No Hx Liver Disease: No Hx Insulin Dependent Diabetes: No Hx Non-Insulin Dependent Diabetes: No Hx Thyroid Disease: No Hx Hypothyroidism: No Hx Hyperthyroidism: No - Hematic Hx Anemia: No Hx Sickle Cell Disease: No - Other Systems Hx Alcohol Use: No Hx Cancer: No Hx Obesity: Yes (BMI 62)
--- NOTE | 2022-04-14 17:58 | Anesthesia Day of Surgery ---
Anesthesia Day of Surgery - Day of Surgery Patient Examined: Yes Patient H&P Reviewed: Yes Patient is NPO: Yes Beta Blockers: No Cardiac Clearance: No Pulmonary Clearance: No Reynaldo's Test: N/A
--- NOTE | 2022-04-14 18:01 | Progress Note ---
Regional Anesthesia Block - Regional Anesthesia Block Start Time: 17:32 Stop Time: 17:41 Performed By:: DARYL PIZARRO Procedure: Junior TAP block, US guided, 30 ml bupi 0.25% each side, luis well, neg aspiration, VSS
[2022-04-14] MEDS ORDERED: MAGNESIUM SULFATE 40GM/1000ML 40 GM/1,000 ML BAG IV ONE (18:13)
--- NOTE | 2022-04-14 18:15 | Operative Report ---
Operative Report Operative Report: Date of procedure: 04/14/2022 Pre-operative diagnosis: 37 weeks gestation Preeclampsia Morbid obesity Twin gestation Desires permanent sterilization Intrauterine growth restriction of twin A Post-operative diagnosis: Same plus left ovarian cyst Procedure name(s): 1. repeat low transverse section via Pfannenstiel skin incision 2. Bilateral salpingectomy 3. Drainage of left ovarian cyst with partial cystectomy Surgeon: Dr. Saleh Knitting Tester: Ms. Siri Perry, [employer] Anesthesia: Spinal QBL: 990 mL Urine output: 100 mL of clear urine out at end of the procedure Fluids: 1100 mL Cell Saver: 225 mL Findings: Twin A: Liveborn male 4 pounds 12 ounces Apgars of 8 and 9 at 1 and 5 minutes Twin B: Liveborn female weight 6 pounds 4 ounces Apgars of 8 and 9 at 1 and 5 minutes Both babies with transverse presentation back up converted to breech deliveries Approximately 10 cm left ovarian cyst that appears simple in nature with clear fluid noted that was drained and partial cystectomy was performed Otherwise grossly normal fallopian tubes and ovaries bilaterally Normal uterus Complete separation of anterior rectus muscles. And to rectus muscles could not be clearly identified during the surgery. Indications: Patient was brought in by maternal- medicine specialist for delivery due to diagnosis of preeclampsia and for intrauterine growth restriction of twin A. All risk benefits and alternatives were discussed with the patient. Patient desired permanent sterilization. Consents were signed and placed on the chart. Procedure: Patient was taking to the operating room. Patient was then prepped and draped in sterile fashion after anesthesia was found to be adequate. A low transverse skin incision was made with the scalpel through previous incisional scar and carried down to the underlying layer of fascia with the Bovie. The fascia was then incised in the midline and this incision was extended bilaterally with the Bovie. With opening the fascia the uterus was immediately seen. Very little peritoneum was noted. [The Kishan retractor was placed.] A lower transverse uterine incision was made with the scalpel and extended bilaterally with blunt dissection. Artificial rupture of membranes was performed yielding [clear amniotic fluid]. Infant's feet were identified and the was delivered via breech extraction in usual fashion. Twin A was bulb suction. The umbilical cord was clamped x2. The cord was cut. The was then placed in sterile bassinet. Attention was then turned to the second amniotic sac. Infant's feet were identified. Artificial rupture membranes was done with clear amniotic fluid noted. Twin B was delivered via breech extraction in usual fashion without difficulty. Body cord x1 was noted and easily reduced with delivery. Cord was clamped x2 cut x1. The infant was placed in sterile bassinet. The placentas was manually extracted in its entirety. The uterus was exteriorized and cleared of all clots and debris. The uterine incision was closed using 0 Vicryl in a running locking fashion. A second imbricating layer of the same suture was then created. Attention was then turned to the fallopian tubes. The right fallopian tube was then elevated cauterized using the Bovie undermined and transected the tube was then handed off for pathology. Excellent hemostasis was noted this was done bilaterally The posterior cul-de-sac was copiously irrigated. The uterus was returned to the a bdomen. The gutters were also irrigated. The anterior rectus fascia was reapproximated using 0 Vicryl in a running fashion. The subcuticular fat was reapproximated using 2-0 Vicryl in a running fashion. The skin was reapproximated with a 4-0 Monocryl with a subcuticular stitch.. The patient tolerated the procedure well. Sponge lap and needle counts were all correct x3. Patient was taken to the recovery room awake and in stable condition.
[2022-04-14] MEDS ORDERED: WITCH HAZEL/ GLYCERIN PAD TP PRN (18:16)
[2022-04-14] MEDS ORDERED: NALOXONE 0.4 MG/1 ML INJ IV PRN (18:16)
[2022-04-14] MEDS ORDERED: LANOLIN/ZINC/DIMETHICONE (LANSINOH) 7 GM TP PRN (18:16)
[2022-04-14] MEDS ORDERED: SIMETHICONE 80 MG CHEW TAB PO PRN (18:16)
[2022-04-14] MEDS ORDERED: MORPHINE 4 MG/1 ML INJ IV PRN (18:16)
[2022-04-14] MEDS ORDERED: KETOROLAC 30 MG/1 ML INJ IV PRN ×2 (18:16)
[2022-04-14] MEDS ORDERED: ONDANSETRON 4 MG/2 ML INJ IV PRN (18:16)
[2022-04-14] MEDS ORDERED: hydrALAZINE 20 MG/1 ML INJ ONE (18:50)
[2022-04-14] MEDS ORDERED: MAGNESIUM SULFATE 40GM/1000ML 40 GM/1,000 ML BAG IV SCH (19:00)
[2022-04-14] MEDS ORDERED: hydrALAZINE 20 MG/1 ML INJ IV PRN ×2 (19:13→19:47)
[2022-04-14] MEDS: HYDROcodone/ACETAMINOPHEN 5-325 MG TAB PO PRN (19:51)
[2022-04-15] MEDS: HYDROcodone/ACETAMINOPHEN 5-325 MG TAB PO PRN ×4 (01:51→20:10)
[2022-04-15] MEDS: CLINDAMYCIN 600 MG/50 mL 600 MG/50 ML BAG IV SCH ×2 (06:52→15:48)
[2022-04-15 08:13] LABS: Hematocrit 32.7 % (30.3-42.9); Hemoglobin 10.4 gm/dl (10.1-14.3)
[2022-04-15] MEDS: FERROUS SULFATE 325 MG TAB PO SCH (09:30)
[2022-04-15] MEDS: PRENATAL VIT27-FE FUMARATE-FOLIC ACID VIT TAB PO SCH (09:31)
--- NOTE | 2022-04-15 09:33 | Progress Note ---
Assessment and Plan - Patient Problems (1) Preeclampsia Current Visit: Yes Status: Acute Qualifiers: Trimester: third trimester Qualified Code(s): O14.93 - Unspecified pre- eclampsia, third trimester Plan to address problem: -cont po med -d/c home tomorrow if remains AFVSS (2) Sterilization Current Visit: Yes Status: Acute (3) delivery delivered Current Visit: No Status: Acute Plan to address problem: -routine post op care pt doing well. Subjective - Subjective Date of service: 04/15/22 Principal diagnosis: POD #1 s/p RTLCS wtih BS 2)mild pre E Interval history: Patient doing well this morning with some complaints of pain. Otherwise pain has been well controlled. She denies any headaches or shortness of breath. No chest pain dizziness. Patient was noted to have a magnesium level that was over 8 this morning. She does not show any signs and symptoms of magnesium sulfate toxicity. Will DC magnesium sulfate at this time and allow patient to go to mother-baby. Blood pressures are well controlled at this time. Patient did receive magnesium sulfate for approximately 12 hours. Patient reports: appetite normal, voiding normally, pain well controlled, flatus, no dizzy ambulation [place]: doing well Objective - Vital Signs Latest vital signs: Vital Signs Temp Pulse Resp BP Pulse Ox Pulse Ox 04/15/22 09:25 127 H 97 04/15/22 09:20 111 H 97 04/15/22 09:17 109 H 135/75 04/15/22 09:15 106 H 97 04/15/22 09:10 111 H 96 04/15/22 09:05 114 H 97 04/15/22 09:00 110 H 98 04/15/22 08:55 116 H 94 04/15/22 08:50 109 H 95 04/15/22 08:45 107 H 95 04/15/22 08:40 107 H 94 04/15/22 08:35 107 H 94 04/15/22 08:30 109 H 97 04/15/22 08:25 112 H 96 04/15/22 08:20 111 H 96 04/15/22 08:17 103 H 132/75 04/15/22 08:15 114 H 96 04/15/22 08:10 114 H 97 04/15/22 08:05 109 H 95 04/15/22 08:00 111 H 96 04/15/22 07:55 117 H 97 04/15/22 07:50 110 H 95 04/15/22 07:45 113 H 95 04/15/22 07:40 108 H 95 04/15/22 07:35 110 H 93 04/15/22 07:30 110 H 95 04/15/22 07:25 111 H 97 04/15/22 07:20 105 H 94 04/15/22 07:17 105 H 121/74 04/15/22 07:15 103 H 98 04/15/22 07:10 107 H 97 04/15/22 07:05 107 H 97 04/15/22 07:00 104 H 96 04/15/22 06:55 109 H 96 04/15/22 06:50 106 H 97 04/15/22 06:45 107 H 94 04/15/22 06:40 106 H 95 04/15/22 06:35 107 H 94 04/15/22 06:30 105 H 94 04/15/22 06:25 106 H 94 04/15/22 06:20 108 H 93 04/15/22 06:17 109 H 124/67 04/15/22 06:15 110 H 94 04/15/22 06:10 106 H 93 04/15/22 06:05 112 H 94 04/15/22 06:00 111 H 93 04/15/22 05:55 111 H 93 04/15/22 05:50 110 H 93 04/15/22 05:45 106 H 92 04/15/22 05:40 109 H 94 04/15/22 05:35 112 H 92 04/15/22 05:30 109 H 92 04/15/22 05:25 110 H 93 04/15/22 05:20 111 H 91 04/15/22 05:18 110 H 88 04/15/22 05:17 110 H 131/64 04/15/22 05:15 111 H 87 04/15/22 05:12 106 H 89 04/15/22 05:10 106 H 88 04/15/22 05:06 103 H 87 04/15/22 05:05 104 H 90 04/15/22 05:00 113 H 86 04/15/22 04:55 109 H 93 04/15/22 04:50 108 H 93 04/15/22 04:45 103 H 93 04/15/22 04:40 104 H 92 04/15/22 04:35 107 H 92 04/15/22 04:30 106 H 92 04/15/22 04:25 104 H 92 04/15/22 04:20 106 H 92 04/15/22 04:17 102 H 111/55 04/15/22 04:15 108 H 94 04/15/22 04:10 110 H 92 04/15/22 04:05 107 H 93 04/15/22 04:00 111 H 93 04/15/22 03:55 109 H 93 04/15/22 03:50 109 H 93 04/15/22 03:45 107 H 93 04/15/22 03:40 104 H 93 04/15/22 03:35 104 H 93 04/15/22 03:30 107 H 94 04/15/22 03:25 103 H 94 04/15/22 03:20 114 H 95 04/15/22 03:17 105 H 120/69 04/15/22 03:15 109 H 93 04/15/22 03:10 115 H 96 04/15/22 03:05 113 H 94 04/15/22 03:00 120 H 95 04/15/22 02:55 114 H 94 04/15/22 02:50 117 H 94 04/15/22 02:45 110 H 95 04/15/22 02:40 114 H 95 04/15/22 02:35 114 H 95 04/15/22 02:30 119 H 96 04/15/22 02:25 115 H 95 04/15/22 02:20 109 H 95 04/15/22 02:17 108 H 122/73 04/15/22 02:15 111 H 95 04/15/22 02:10 104 H 93 04/15/22 02:05 114 H 97 04/15/22 02:00 103 H 93 04/15/22 01:55 103 H 94 04/15/22 01:50 109 H 94 04/15/22 01:45 107 H 95 04/15/22 01:40 105 H 94 04/15/22 01:35 108 H 94 04/15/22 01:30 108 H 94 04/15/22 01:25 110 H 94 04/15/22 01:20 111 H 93 04/15/22 01:17 107 H 117/69 08/07/22 01:15 108 H 95 04/15/22 01:10 109 H 96 04/15/22 01:05 108 H 94 04/15/22 01:00 107 H 93 04/15/22 00:55 105 H 95 04/15/22 00:50 103 H 95 04/15/22 00:45 103 H 94 04/15/22 00:40 103 H 96 04/15/22 00:35 101 H 93 04/15/22 00:30 107 H 93 04/15/22 00:25 106 H 93 04/15/22 00:20 104 H 94 04/15/22 00:17 106 H 131/71 04/15/22 00:15 107 H 93 04/15/22 00:10 109 H 91 04/15/22 00:05 108 H 93 04/15/22 00:00 107 H 93 04/14/22 23:55 107 H 93 04/14/22 23:50 100 H 93 04/14/22 23:45 106 H 92 04/14/22 23:40 105 H 91 04/14/22 23:35 104 H 93 04/14/22 23:30 106 H 92 04/14/22 23:25 100 H 93 04/14/22 23:20 103 H 94 04/14/22 23:17 106 H 134/63 04/14/22 23:15 105 H 93 04/14/22 23:10 105 H 93 04/14/22 23:05 104 H 94 04/14/22 23:00 109 H 94 04/14/22 22:55 104 H 96 04/14/22 22:50 114 H 95 04/14/22 22:45 111 H 94 04/14/22 22:40 108 H 95 04/14/22 22:35 114 H 95 04/14/22 22:30 108 H 95 04/14/22 22:25 108 H 94 04/14/22 22:20 103 H 95 04/14/22 22:15 104 H 96 04/14/22 22:10 109 H 96 04/14/22 22:05 109 H 94 04/14/22 22:00 105 H 93 04/14/22 21:55 107 H 93 04/14/22 21:51 104 H 133/64 04/14/22 21:50 109 H 95 08/06/22 21:45 104 H 93 04/14/22 21:40 108 H 95 04/14/22 21:35 111 H 96 04/14/22 21:30 113 H 95 04/14/22 21:25 107 H 95 04/14/22 21:21 105 H 134/75 04/14/22 21:20 108 H 96 04/14/22 21:15 107 H 94 04/14/22 21:10 104 H 94 04/14/22 21:05 110 H 95 04/14/22 21:00 107 H 94 04/14/22 20:55 105 H 94 04/14/22 20:54 106 H 94 04/14/22 20:50 109 H 95 04/14/22 20:49 107 H 94 04/14/22 20:45 105 H 95 04/14/22 20:40 105 H 90 04/14/22 20:39 103 H 146/83 93 04/14/22 19:45 98 04/14/22 19:30 125 H 20 174/99 99 04/14/22 19:22 111 H 171/103 04/14/22 19:00 121 H 27 H 174/99 99 04/14/22 18:45 104 H 21 159/88 95 04/14/22 18:30 111 H 21 164/99 95 04/14/22 18:15 102 H 24 153/93 93 04/14/22 18:10 103 H 169/99 04/14/22 18:00 101 H 24 159/92 99 04/14/22 17:55 97.8 F 106 H 19 134/92 99 Intake and Output 04/14/22 04/15/22 04/15/22 22:59 06:59 14:59 Intake Total 1445.8 545 Output Total 800 400 800 Balance 645.8 145 -800 Intake: IV 1445.8 545 Lactated Ringers 1,000 ml 111 328 @ 2250 mls/hr IV PREOP BENSON Rx#:[id number] MAGNESIUM SULFATE 40GM/ 334.8 217 1000ML 40 gm In 1,000 ml @ 2 GM/HR 50 mls/hr IV DIRECT BENSON Rx#:[id number] Output: Urine 800 400 800 Indwelling Catheter 700 400 800 Other: Total, Output Amount 700 400 800 Estimated Blood Loss 920 - Exam Cardiovascular: Present: Normal S1, Normal S2 Lungs: Present: Clear to auscultation Abdomen: Present: normal appearance, soft, normal bowel sounds. Absent: distention, tenderness, guarding Deep Tendon Reflex Grade: Normal +2 Incision: Present: normal, dry, intact, dressed - Labs Labs: Abnormal lab results 04/15/22 04/15/22 Range/Units 00:32 07:35 Magnesium 3.20 H 8.90 H (1.7-2.3) mg/dL
[2022-04-16] MEDS: HYDROcodone/ACETAMINOPHEN 5-325 MG TAB PO PRN ×4 (01:39→22:19)
--- NOTE | 2022-04-16 07:58 | Progress Note ---
Assessment and Plan A: 36 y.o. s/p rpt d/t Pre-eclampsia, POD #2. - Patient Problems (1) Preeclampsia Current Visit: Yes Status: Acute Qualifiers: Trimester: third trimester Qualified Code(s): O14.93 - Unspecified pre- eclampsia, third trimester Plan to address problem: Monitor for worsening s/sx of Pre-eclampsia. Continue to monitor blood pressures. (2) delivery delivered Current Visit: No Status: Acute Plan to address problem: Continue with care. Advance diet as toleration. Encourage ambulation. Incision care explained. Anticipate discharge home on 04/17. Subjective - Subjective Date of service: 04/16/22 Principal diagnosis: POD #2 s/p RTLCS wtih BS 2)mild pre E Interval history: Pt is doing well. Would like discharge home on 04/17. Denies HUITRON, blurred vision, spots before her eyes, chest pain, shortness of breath, and upper abdominal pain. Requesting pain medication. RN aware. Pt with some edema. We discussed elevation of her legs while sitting and watching for the above symptoms. Patient reports: appetite normal, voiding normally, pain well controlled, flatus, ambulating normally [place]: doing well, in NICU Objective - Vital Signs Latest vital signs: Vital Signs Temp Pulse Resp BP BP Pulse Ox Pulse Ox 04/16/22 05:33 98.6 F 103 H 18 142/71 95 04/16/22 01:52 98.9 F 108 H 16 126/71 94 04/16/22 01:39 18 04/15/22 21:50 100 H 138/75 04/15/22 20:10 18 98 04/15/22 17:21 98.2 F 20 L 20 120/64 96 04/15/22 14:00 98 04/15/22 13:59 98.4 F 107 H 16 129/78 96 04/15/22 09:45 112 H 95 04/15/22 09:40 116 H 96 04/15/22 09:35 122 H 96 04/15/22 09:30 116 H 135/75 97 04/15/22 09:25 127 H 97 04/15/22 09:20 111 H 97 04/15/22 09:17 109 H 135/75 04/15/22 09:15 106 H 97 04/15/22 09:10 111 H 96 04/15/22 09:05 114 H 97 04/15/22 09:00 110 H 98 04/15/22 08:55 116 H 94 04/15/22 08:50 109 H 95 04/15/22 08:45 107 H 95 04/15/22 08:40 107 H 94 04/15/22 08:35 107 H 94 04/15/22 08:30 109 H 97 04/15/22 08:25 112 H 96 04/15/22 08:20 111 H 96 04/15/22 08:17 103 H 132/75 04/15/22 08:15 114 H 96 04/15/22 08:10 114 H 97 04/15/22 08:05 109 H 95 04/15/22 08:00 111 H 96 04/15/22 07:55 117 H 97 Intake and Output 04/15/22 04/16/22 04/16/22 22:59 06:59 14:59 Intake Total 440 240 Balance 440 240 Intake: Oral 440 Intake, Free Water 240 Other: Total, Intake Amount 320 # Voids Void 1 1 - Exam Narrative Exam: Blood pressure ranges have been 120-140's/60-70's. Cardiovascular: Present: Regular rate Lungs: Present: Normal air movement Abdomen: Present: normal appearance, soft Vulva: both: normal Uterus: Present: normal Extremities: Present: edema (+2 edema noted to bilateral lower extremities. ) Deep Tendon Reflex Grade: Normal +2 Incision: Present: normal, dry, intact, other (Dressing removed. No s/sx of infection noted. ) - Labs Labs: Abnormal lab results 04/15/22 04/15/22 Range/Units 07:35 14:57 Magnesium 8.90 H 3.00 H (1.7-2.3) mg/dL
[2022-04-16] MEDS: FERROUS SULFATE 325 MG TAB PO SCH (13:05)
[2022-04-16] MEDS: PRENATAL VIT27-FE FUMARATE-FOLIC ACID VIT TAB PO SCH (13:06)
[2022-04-17] MEDS: HYDROcodone/ACETAMINOPHEN 5-325 MG TAB PO PRN ×2 (05:24→11:52)
--- NOTE | 2022-04-17 08:00 | Discharge Summary ---
Providers - Providers Date of Admission: 04/13/22 10:08 Date of discharge: 04/17/22 Attending physician: ANNE CAAL Primary care physician: ANNE CAAL Hospitalization Reason for admission: section Delivery: Procedure: repeat low transverse Episiotomy: none Incision: normal, dry, intact complications: none Discharge diagnosis: IUP at term delivered baby: twins Pertinent studies: Pt denies HUITRON, blurred vision, spots before her eyes, chest pain, shortness of breath, and upper abdominal pain. We discussed taking her Labetalol as prescribed. She is to take her blood pressure at least once a day. If her blood pressure is equal to or greater than 140/90 and if remains that high even after taking her blood pressure medication, she is to call the consultant teacher provider for further instructions. She is also to call the consultant teacher provider if she has HUITRON, blurred vision, spots before her eyes, chest pain, shortness of breath, upper abdominal pain, and/or her blood pressures was 140/90 or greater. Pt verbalized understanding of all these instructions. Hospital course: S: Pt doing well. Ambulating, voiding, and passing flatus. O: VSS. Blood pressure ranges have [id number]'s/60-70's. Incision open to air, steri strips intact. No drainage or s/sx of infection noted. H/H 10.4/32.7 A: 36 y.o. s/p rpt of twins. In good condition . P: Discharge home with instructions. Pt to schedule incision check in the office in 1 week. Pt to schedule son's circumcision in the office in 1 week. Condition at discharge: Good Disposition: 01 HOME / SELF CARE / HOMELESS - Discharge Diagnoses (1) Preeclampsia Status: Resolved Qualifiers: Trimester: third trimester Qualified Code(s): O14.93 - Unspecified pre- eclampsia, third trimester (2) delivery delivered Status: Acute Plan - Discharge Medications Prescriptions: Docusate Sodium [Colace] 100 mg PO BID PRN #60 capsule PRN Reason: Constipation Lidocain2.5%/Prilocai2.5% [Emla] 2 gm TP ONCE #1 tube RX: Ferrous Sulfate [Feosol 325 MG tab] 325 mg PO QDAY #60 tablet Hydrocortisone [Hydrocortisone 2.5% OINT] 20 gm TP TID #1 labetaloL [Labetalol 200mg TAB] 200 mg PO BID #60 RX: Ibuprofen [Motrin 800 MG tab] 800 mg PO Q8HR PRN #30 tablet PRN Reason: Pain, Moderate (4-6) oxyCODONE /ACETAMINOPHEN [Percocet 5/325] 1 tab PO Q4HR #30 tab - Provider Discharge Summary Activity: routine, no sex for 6 weeks, no heavy lifting 4 weeks, no strenuous exercise Diet: routine Instructions: routine Additional instructions: [] Smoking cessation referral if applicable(refer to patient education folder for contact #) [] Refer to [facility] Booklet Call your doctor immediately for: * Fever > 100.5 * Heavy vaginal bleeding ( >1 pad per hour) * Severe persistent headache * Shortness of breath * Reddened, hot, painful area to leg or breast * Drainage or odor from incision. * Keep incision clean and dry at all times and follow doctor's instructions regarding bathing/showering - Follow up plan Follow up: ANNE CAAL MD [Primary Care Provider] - 7 Days (- Congratulations on the of your baby boy and baby girl! - Thank you for allowing us to take care of you! - Please keep your scheduled incision check on April 25. - Please schedule your son's circumcision appointment in the office in 1 week. - You have been given a prescription for EMLA cream for your son's circumcision. Please do not use this cream at home but bring it with you to your son's cir cumcision appointment. - If you develop any of the following please call the on-call provider and go to the nearest ER for an evaluation: headaches, blurred vision, spots before your eyes, chest pain, feeling like you can not catch your breath, severe pain in your belly, your blood pressure is 140/90 or greater after taking your medicince and/or you have the above symptoms with your blood pressure being 140/90 or greater. - Should you have any questions or concerns after discharge, please do not hesitate to give the office a call at . ) Forms: [facility] Discharge Summary
[2022-04-17] MEDS: FERROUS SULFATE 325 MG TAB PO SCH (10:10)
[2022-04-17] MEDS: PRENATAL VIT27-FE FUMARATE-FOLIC ACID VIT TAB PO SCH (10:10)
[2022-04-17 16:11] VITALS: BP 138/76
== END 2022-04-17 05:30 | disposition home or self-care (01) | DRG 785 ==
LOC: APU 10:08 → LD 21:45 → APU 04-14 15:27 → LD 04-14 18:28 → OB 04-15 14:46
PROVIDERS: ADMIT Obstetrics & Gynecology; ATTEND Obstetrics & Gynecology
PROC: 10D00Z1 Extraction of Products of Conception, Low, Open Approach (ICD-10-PCS; principal; 2022-04-14)
PROC: 0UB70ZZ Excision of Bilateral Fallopian Tubes, Open Approach (ICD-10-PCS; 2022-04-14)
PROC: 0UB10ZZ Excision of Left Ovary, Open Approach (ICD-10-PCS; 2022-04-14)
DX: O36.5931 Maternal care for other known or suspected poor fetal growth, third trimester, fetus 1 (principal); O34.211 Maternal care for low transverse scar from previous cesarean delivery; Z20.822 Contact with and (suspected) exposure to COVID-19; Z3A.37 37 weeks gestation of pregnancy; O14.94 Unspecified pre-eclampsia, complicating childbirth; Z37.2 Twins, both liveborn; O30.003 Twin pregnancy, unspecified number of placenta and unspecified number of amniotic sacs, third trimester; O99.214 Obesity complicating childbirth; E66.01 Morbid (severe) obesity due to excess calories; N83.202 Unspecified ovarian cyst, left side; O34.83 Maternal care for other abnormalities of pelvic organs, third trimester; Z87.891 Personal history of nicotine dependence; Z88.8 Allergy status to other drugs, medicaments and biological substances; Z88.0 Allergy status to penicillin; Z30.2 Encounter for sterilization
CPT/HCPCS: 36415; 83735; 85014; 85018; 85025; 86592; 86850; 86870; 86900; 86901; 86922; 88302; 88307; G0378; J3490; J7502; J0360; J1100; J1885; J2370; J2405; J2765; J3010; J3475; J7120; U0003